=== PATIENT | female | born 1990 | race Caucasian/White ===

== ENCOUNTER → 2019-02-12 | Outpatient (CLI) | payer OTHER ==
[~2019-02-12] MED LIST: ALBU90OI; ALBU90OI INH; ALBU90OI61 INH; AZIT250 PO; Augmentin 875-1 EACH PO; BIRTH CONTROL; CRUTCH4 USE; Flurbiprofen100 MG PO; IBUP600 PO; IBUP800 PO; MONT5TCH; NAPR500 PO; PRED20 PO; Robaxin-750750 MG PO; SULTRIDS PO; TRAM50 PO; Ultram50 MG PO; Vitafol-Ob+Dha1 EACH PO
== END ==
LOC: LAB SHORT 19:49 → LAB 19:49
PROVIDERS: Registered Nurse Community Health
DX: Z01.419 Encounter for gynecological examination (general) (routine) without abnormal findings (principal); F17.210 Nicotine dependence, cigarettes, uncomplicated
CPT/HCPCS: G0123

== ENCOUNTER 2019-02-18 16:40 | Emergency (ER) | payer OTHER ==
[~2019-02-18] VITALS: Ht 172.7 cm; Wt 138.3 kg
[~2019-02-18 16:40] MED LIST changes: -Robaxin-750750 MG PO
[2019-02-18] MEDS ORDERED: Robaxin-750750 MG PO (18:25)
== END 2019-02-18 18:31 | disposition home or self-care (01) ==
LOC: ER 16:40
DX: M25.522 Pain in left elbow (principal); J45.909 Unspecified asthma, uncomplicated; F32.9 Major depressive disorder, single episode, unspecified; F17.210 Nicotine dependence, cigarettes, uncomplicated; V89.2XXA Person injured in unspecified motor-vehicle accident, traffic, initial encounter
CPT/HCPCS: 73080; 99283-25

== ENCOUNTER 2020-11-15 06:43 | Emergency (ER) | payer OTHER ==
[~2020-11-15] VITALS: Ht 172.7 cm; Wt 90.7 kg
[~2020-11-15 06:43] MED LIST changes: +Robaxin-750750 MG PO
[2020-11-15 08:52] LABS: SARS-Cov-2 (COVID-19) PCR, MMC NEGATIVE (NEGATIVE)
[2020-11-15] MEDS ORDERED: PRED20 PO (09:19)
[2020-11-15] MEDS ORDERED: AZIT250 PO (09:19)
[2020-11-15] MEDS ORDERED: ALBU90OI INH (09:19)
== END 2020-11-15 09:26 | disposition home or self-care (01) ==
LOC: ER 06:43
PROVIDERS: Emergency Medicine
DX: J45.901 Unspecified asthma with (acute) exacerbation (principal); F17.210 Nicotine dependence, cigarettes, uncomplicated; Z20.822 Contact with and (suspected) exposure to COVID-19; Z79.899 Other long term (current) drug therapy
CPT/HCPCS: 71045; 94640; 99283-25; U0004